=== PATIENT | female | born 1975 | race Hispanic/Latino ===

== ENCOUNTER 2018-08-18 20:06 | Emergency (ER) | payer MEDICAID ==
[2018-08-18 20:45] LABS: APPEARANCE,URINE Clear (CLEAR); BILIRUBIN,URINE Negative (NEGATIVE); COLOR,URINE Yellow (YELLOW); GLUCOSE, URINE (UA) Negative (NEGATIVE); KETONES,URINE 15 mg/dL (NEGATIVE); LEUKOCYTE ESTERASE ,URINE Negative (NEGATIVE); NITRATE,URINE Negative (NEGATIVE); OCCULT BLOOD,URINE Negative (NEGATIVE); PH,URINE 6.5 (5.0-8.0); PROTEIN,URINE Negative (NEGATIVE)
[2018-08-18 20:49] LABS: BASOPHILS % (AUTO) 0.7 % (0.0-5.0); EOSINOPHILS % (AUTO) 0.7 % (0.0-8.0); HEMATOCRIT 33.4 % (36-48); LYMPHOCYTES % (AUTO) 23.2 % (21.0-51.0); MEAN CORPUSCULAR HEMOGLOBIN 29.8 pg (27.0-33.0); MEAN CORPUSCULAR HGB CONC 34.6 g/dL (32.0-36.0); MEAN CORPUSCULAR VOLUME 86.1 fL (79-99); MONOCYTES % (AUTO) 7.7 % (3.0-13.0); NEUTROPHILS % (AUTO) 67.7 % (40.0-77.0); PLATELET COUNT (AUTO) 261 K/uL (130-400); RED BLOOD CELL COUNT(AUTO) 3.88 MIL/uL (4.00-5.50); WHITE BLOOD COUNT (AUTO) 8.6 K/uL (4.8-10.8)
[2018-08-18 21:04] LABS: CREATININE 0.7 mg/dL (0.5-1.5); POTASSIUM 3.2 mmol/L (3.5-5.1)
[2018-08-18] MEDS ORDERED: POTASSIUM BICARB/CIT AC 25 MEQ TABLET.EFF ONE (21:29)
[2018-08-18 21:31] LABS: ALBUMIN 3.2 g/dL (3.5-5.0); BILIRUBIN,TOTAL 0.2 mg/dL (0.2-1.0); TOTAL PROTEIN, SERUM 7.2 g/dL (6.0-8.3)
[2018-08-18] MEDS ORDERED: LACTATED RINGERS 1000ML 1,000 ML IV ONE (21:37)
== END 2018-08-18 23:47 | disposition home or self-care (01) ==
LOC: EDH 20:06
DX: O26.892 Other specified pregnancy related conditions, second trimester (principal); R53.1 Weakness; R51 Headache; Z3A.18 18 weeks gestation of pregnancy; Z79.899 Other long term (current) drug therapy
CPT/HCPCS: 36415; 76805; 80053; 81003; 84702; 85025; 86900; 86901; 93005; 99285; J7120

== ENCOUNTER 2020-09-26 08:32 | Emergency (ER) | payer MEDICAID, OTHER ==
[2020-09-26 09:21] LABS: BASOPHILS % (AUTO) 0.6 % (0.0-5.0); EOSINOPHILS % (AUTO) 1.5 % (0.0-8.0); LYMPHOCYTES % (AUTO) 49.4 % (21.0-51.0); MEAN CORPUSCULAR HEMOGLOBIN 28.4 pg (27.0-33.0); MEAN CORPUSCULAR HGB CONC 33.2 g/dL (32.0-36.0); MEAN CORPUSCULAR VOLUME 85.6 fL (79-99); MONOCYTES % (AUTO) 6.8 % (3.0-13.0); NEUTROPHILS % (AUTO) 41.6 % (40.0-77.0); PLATELET COUNT (AUTO) 275 K/uL (130-400); RED BLOOD CELL COUNT(AUTO) 4.44 MIL/uL (4.00-5.50); RED CELL DISTRIBUTION WIDTH 13.3 % (11.0-15.5); WHITE BLOOD COUNT (AUTO) 6.8 K/uL (4.8-10.8)
[2020-09-26 09:28] LABS: CREATININE 0.7 mg/dL (0.5-1.5); POTASSIUM 3.4 mmol/L (3.5-5.1)
[2020-09-26 09:29] LABS: APPEARANCE,URINE Clear (CLEAR); BILIRUBIN,URINE Negative (NEGATIVE); COLOR,URINE Yellow (YELLOW); GLUCOSE, URINE (UA) Negative (NEGATIVE); KETONES,URINE Negative (NEGATIVE); LEUKOCYTE ESTERASE ,URINE Negative (NEGATIVE); NITRATE,URINE Negative (NEGATIVE); OCCULT BLOOD,URINE Negative (NEGATIVE); PH,URINE 6.5 (5.0-8.0); PROTEIN,URINE Negative (NEGATIVE); UROBILINOGEN,URINE 0.2 mg/dL (0.2-1.0)
[2020-09-26 09:31] LABS: INR 0.92 (0.85-1.15); PARTIAL THROMBOPLASTIN TIME 28.7 SEC (26.3-35.5)
[2020-09-26 09:33] LABS: HCG,QUAL RESULT NEGATIVE (NEGATIVE)
[2020-09-26 09:33] LABS: BILIRUBIN,TOTAL 0.3 mg/dL (0.2-1.0); TOTAL PROTEIN, SERUM 7.8 g/dL (6.0-8.3)
[2020-09-26] MEDS ORDERED: MECLIZINE HCL 25 MG TABLET ONE (09:48)
[2020-09-26] MEDS ORDERED: ASPIRIN 325 MG TABLET ONE (09:48)
== END 2020-09-26 14:02 | disposition home or self-care (01) ==
LOC: EDH 08:32
DX: H81.319 Aural vertigo, unspecified ear (principal)
CPT/HCPCS: 36415; 70450; 71045; 80053; 81003; 81025; 82550; 82948; 84484; 85025; 85610; 85730; 93005

== ENCOUNTER 2021-05-19 20:32 | Emergency (ER) | payer OTHER ==
[~2021-05-19] VITALS: Ht 162.6 cm; Wt 70.3 kg
[2021-05-19 21:37] VITALS: BP 104/56
[2021-05-20] MEDS ORDERED: KETOROLAC 60 MG VIAL (30MG/ML) ONE (00:23)
[2021-05-20] MEDS ORDERED: ONDANSETRON ODT 4MG TAB ONE (00:24)
[2021-05-20] MEDS ORDERED: HYDROCODONE/ACETAMINOPHEN 5/325 MG TAB ONE (00:24)
[2021-05-20] MEDS ORDERED: HYDROCODONE/ACETAMINOPHEN 5/325 MG TAB PO ONE (00:30)
[2021-05-20] MEDS ORDERED: KETOROLAC 60 MG VIAL (30MG/ML) IM ONE (00:30)
[2021-05-20] MEDS ORDERED: ONDANSETRON ODT 4MG TAB SL ONE (00:30)
[2021-05-20 00:33] VITALS: BP 110/61
== END 2021-05-20 00:35 | disposition home or self-care (01) ==
LOC: EDH 21:24
DX: M27.3 Alveolitis of jaws (principal); K08.89 Other specified disorders of teeth and supporting structures; Z79.899 Other long term (current) drug therapy
CPT/HCPCS: 96372; 99283; J1885

== ENCOUNTER 2021-08-30 17:43 | Emergency (ER) | payer SELFPAY ==
[~2021-08-30] VITALS: Ht 162.6 cm; Wt 70.8 kg
[2021-08-30] MEDS ORDERED: CYCLOBENZAPRINE HCL 10 MG TABLET PO ONE (18:00)
[2021-08-30] MEDS ORDERED: KETOROLAC 60 MG VIAL (30MG/ML) IM ONE (18:00)
[2021-08-30] MEDS ORDERED: KETOROLAC 60 MG VIAL (30MG/ML) ONE (18:19)
[2021-08-30] MEDS ORDERED: CYCLOBENZAPRINE HCL 10 MG TABLET ONE (18:20)
[2021-08-30 18:32] LABS: BILIRUBIN,URINE Negative (NEGATIVE); COLOR,URINE Yellow (YELLOW); GLUCOSE, URINE (UA) Negative (NEGATIVE); KETONES,URINE 15 mg/dL (NEGATIVE); LEUKOCYTE ESTERASE ,URINE Negative (NEGATIVE); NITRATE,URINE Negative (NEGATIVE); OCCULT BLOOD,URINE Negative (NEGATIVE); PH,URINE 5.5 (5.0-8.0); PROTEIN,URINE Negative (NEGATIVE); UROBILINOGEN,URINE 0.2 mg/dL (0.2-1.0)
[2021-08-30 18:34] LABS: HCG,QUAL RESULT NEGATIVE (NEGATIVE)
[2021-08-30 18:35] LABS: APPEARANCE,URINE CLEAR (CLEAR)
[2021-08-30 19:11] VITALS: BP 104/43
[2021-08-30] MEDS ORDERED: NAPR-1180 PO (19:14)
[2021-08-30] MEDS ORDERED: LACT10PA5 PO (19:14)
[2021-08-30] MEDS ORDERED: CYCL10TA16 PO (19:14)
[2021-08-30] MEDS ORDERED: MAGNESIUM CITRATE 296 ML SOLUTION ONE (19:15)
[2021-08-30] MEDS ORDERED: LACTULOSE 20 GM/30 ML UDCUP ONE (19:15)
[2021-08-30] MEDS ORDERED: MAGNESIUM CITRATE 296 ML SOLUTION PO ONE (19:30)
[2021-08-30] MEDS ORDERED: LACTULOSE 20 GM/30 ML UDCUP PO ONE (19:30)
[2021-11-27] MEDS ORDERED: CEPH500B PO (02:18)
== END 2021-08-30 19:28 | disposition home or self-care (01) ==
LOC: EDH 17:43
DX: M54.50 Low back pain, unspecified (principal); K59.00 Constipation, unspecified; Z79.1 Long term (current) use of non-steroidal anti-inflammatories (NSAID)
CPT/HCPCS: 72100; 81003; 81025; 96372; 99284; J1885

== ENCOUNTER 2023-06-06 13:57 | Emergency (ER) | payer OTHER ==
[~2023-06-06] VITALS: Ht 162.6 cm; Wt 63.5 kg
[~2023-06-06 13:57] MED LIST: CEPH500B PO; CYCL10TA16 PO; LACT10PA5 PO; NAPR-1180 PO
[2023-06-06 15:04] LABS: APPEARANCE,URINE CLOUDY (CLEAR); BILIRUBIN,URINE NEGATIVE (NEGATIVE); COLOR,URINE LIGHT-YELLOW (YELLOW); GLUCOSE, URINE (UA) NEGATIVE (NEGATIVE); KETONES,URINE NEGATIVE (NEGATIVE); LEUKOCYTE ESTERASE ,URINE 75 Leu/uL (NEGATIVE); NITRATE,URINE NEGATIVE (NEGATIVE); OCCULT BLOOD,URINE NEGATIVE (NEGATIVE); PH,URINE 6.5 (5.0-8.0); PROTEIN,URINE NEGATIVE (NEGATIVE); UROBILINOGEN,URINE 0.2 mg/dL (0.2-1.0)
[2023-06-06 15:08] LABS: HCG,QUALITATIVE URINE NEGATIVE (NEGATIVE)
[2023-06-06 15:09] LABS: BACTERIA,URINE RARE /HPF (None Seen); MUCUS,URINE RARE LPF (None Seen); SQUAMOUS EPITHELIAL CELL,UR FEW /HPF (0-2)
[2023-06-06 15:35] VITALS: BP 93/57; PULSE 61; RESP 20; O2SAT 99
[2023-06-06] MEDS ORDERED: CYCL5TAB PO (15:45)
[2023-06-06] MEDS ORDERED: LIDO1ADH82 TP (15:45)
[2023-06-06] MEDS ORDERED: LIDOCAINE 4% ADH..PATCH TP ONE (16:00)
[2023-06-06] MEDS ORDERED: KETOROLAC 15MG/ML VIAL (15MG/ML) IM ONE (16:00)
[2023-06-06] MEDS ORDERED: CYCLOBENZAPRINE HCL 10 MG TABLET PO ONE (16:00)
== END 2023-06-06 17:22 | disposition home or self-care (01) ==
LOC: EDH 13:57
DX: M62.830 Muscle spasm of back (principal); Z79.899 Other long term (current) drug therapy
CPT/HCPCS: 99284; 87088; 81001; 81025; 96372; J1885